=== PATIENT | female | born 2000 | race Caucasian/White ===

== ENCOUNTER 2021-05-02 22:22 | Outpatient (CLI) | payer MEDICAID | END 2021-05-02 22:23 | disposition short-term general hospital (02) | LOC: EMS 22:22 | DX: R55 Syncope and collapse (principal) | CPT/HCPCS: A0425; A0427; A0999 ==

== ENCOUNTER 2022-09-03 15:30 | Emergency (ER) | payer MEDICAID ==
[2022-09-03 15:57] LABS: BILIRUBIN,URINE NEGATIVE (NEGATIVE); GLUCOSE, URINE (UA) 250 mg/dL (NEGATIVE); KETONES,URINE (UA) NEGATIVE (NEGATIVE); LEUKOCYTE ESTERASE, URINE NEGATIVE (NEGATIVE); NITRITE,URINE NEGATIVE (NEGATIVE); OCCULT BLOOD,URINE NEGATIVE (NEGATIVE); PROTEIN,URINE NEGATIVE (NEGATIVE); UROBILINOGEN,URINE 0.2 (NORMAL) E.U./dL (NORMAL)
[2022-09-03 15:59] LABS: CLARITY,URINE CLEAR (CLEAR); HCG UR QUAL NEGATIVE
--- NOTE | 2022-09-03 16:48 | ED Physician Documentation ---
History of Present Illness - Stated complaint Stated Complaint: FEMALE /BACK PX - Chief complaint Chief Complaint: UTI - Additonal information Additional information: 22-year-old female presents emergency department for evaluation of 3 days dysuria urgency and frequency. Feels like she does not fully empty her bladder and she has to go all the time. She denies thirst night sweats or weight loss. She is at the bedside feeding a 1-year-old . She reports that he was delivered via secondary to preeclampsia. She denies any history of diabetes or gestational diabetes. Denies that she has diabetes in her parents or siblings. Review of Systems Constitutional: reports: Reviewed and negative Nose: reports: Reviewed and negative Throat: reports: Reviewed and negative Cardiac: reports: Reviewed and negative GI: denies: Abdominal Pain, Nausea, Vomiting : reports: Dysuria, Frequency, Hesitancy Skin: reports: Reviewed and negative PD PAST MEDICAL HISTORY - Present Medications Home Medications: Ambulatory Orders Medication Instructions Recorded Confirmed No Known Home Medications 09/03/22 09/03/22 - Allergies Allergies/Adverse Reactions: Allergies Allergy/AdvReac Type Severity Reaction Status Date / Time No Known Drug Allergies Allergy Verified 09/03/22 15:37 PD ED PE NORMAL - General General: Alert and oriented X 3, No acute distress - HEENT HEENT: Atraumatic, Ears normal - Neck Neck: Supple, no meningeal sign, No adenopathy - Cardiac Cardiac: RRR, No murmur - Respiratory Respiratory: No respiratory distress, Clear bilaterally - Abdomen Abdomen: Normal bowel sounds, Soft, Non tender - Back Back: No CVA TTP - Derm Derm: Normal color, Warm and dry - Extremities Extremities: No deformity, No tenderness to palpate, Normal ROM s pain - Neuro Neuro: Alert and oriented X 3, 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 Eye Opening: Spontaneous Motor: Obeys Commands Verbal: Oriented GCS Score: 15 Results - Vitals Vitals: Vital Signs - 24 hr 09/03/22 15:37 Temperature 36.5 C Heart Rate 86 Respiratory 16 Rate Blood Pressure 110/63 O2 Saturation 99 Oxygen O2 Source Room air - Labs Labs: Laboratory Tests 09/03/22 09/03/22 09/03/22 15:48 16:49 16:49 WBC 8.9 RBC 5.02 Hgb 12.8 Hct 40.1 MCV 79.9 L MCH 25.5 L MCHC 31.9 L RDW 14.6 Plt Count 387 MPV 10.0 Neut # (Auto) 5.2 Lymph # (Auto) 3.0 [place] # (Auto) 0.6 Eos # (Auto) 0.1 Baso # (Auto) 0.0 Absolute Nucleated RBC 0.00 Nucleated RBC % 0.0 Sodium 137 Potassium 3.3 L Chloride 103 Carbon Dioxide 24 Anion Gap 10.0 BUN 19 Creatinine 0.7 Estimated GFR (MDRD) 104 Glucose 109 H Calcium 8.8 Urine Color YELLOW Urine Clarity CLEAR Urine pH 6.0 Ur Specific [place] 1.020 Urine Protein NEGATIVE Urine Glucose (UA) 250 H Urine Ketones NEGATIVE Urine Occult Blood NEGATIVE Urine Nitrite NEGATIVE Urine Bilirubin NEGATIVE Urine Urobilinogen 0.2 (NORMAL) Ur Leukocyte Esterase NEGATIVE Ur Microscopic Review NOT INDICATED Urine Culture Comments NOT INDICATED Urine HCG, Qual NEGATIVE Serum Ketones NEGATIVE PD MEDICAL DECISION MAKING - ED course Complexity details: reviewed results, re-evaluated patient, considered differential, d/w patient ED course: 22-year-old female presents emergency department for evaluation of 3 days of dysuria urgency and frequency. No fevers no flank pain. Minimal abdominal ten derness was elicited on exam however her UA shows no markers of infection but trena glucosuria. With this finding I obtained a CBC as well as electrolytes. Her sugar was only 109. Ketones were negative. Hemoglobin A1c is pending. I am suspicious that this patient may be developing early diabetes and am advising very close follow-up with her primary care provider. Urine culture was obtained given the urinary symptoms but will defer antibiotics unless culture is positive. Emergent return precautions otherwise discussed Departure - Departure Disposition: 01 Home, Self Care Clinical Impression: Urinary frequency, Glucosuria Condition: Stable Record reviewed to determine appropriate education?: Yes Instructions: Prediabetes Follow-Up: LOIS FUENTES [Primary Care Provider] - Comments: You are seen today emergency department because for few days you have had painful and frequent urination. Your urine however did not show any findings of infection though there was a large amount of glucose in it. We did obtain a CBC which was normal however the blood sugar was only mildly elevated at 109. Hemoglobin A1c is pending on you. This is a lab that can be used as a marker determinant if somebody has developed diabetes. We are sending your urine for a culture but I would like you to follow very closely with Dr. Fuentes to discuss this ED visit as well as the findings of sugar in your urine as more testing evaluation may be necessary. Return to the ER if you develop any sudden severe abdominal pain, have uncontrolled vomiting, or excessively lethargic or develop any fevers.
[2022-09-03 16:54] LABS: BASOPHILS % (AUTO) 0.3 %; EOSINOPHILS # (AUTO) 0.1 10^3/uL (0.0-0.7); EOSINOPHILS % (AUTO) 0.7 %; HCT - HEMATOCRIT 40.1 % (37.0-47.0); HGB - HEMOGLOBIN 12.8 g/dL (12.0-16.0); LYMPHOCYTES % (AUTO) 34.2 %; MEAN CORPUSCULAR HEMOGLOBIN 25.5 pg (27.0-31.0); MEAN CORPUSCULAR HGB CONC 31.9 g/dL (32.0-36.0); MEAN CORPUSCULAR VOLUME 79.9 fL (81.0-99.0); MONOCYTES # (AUTO) 0.6 10^3/uL (0.0-1.0); MONOCYTES % (AUTO) 6.2 %; NEUTROPHILS # (AUTO) 5.2 10^3/uL (1.5-6.6); NEUTROPHILS % (AUTO) 58.4 %; PLT - PLATELET COUNT 387 10^3/uL (130-450); RED BLOOD COUNT 5.02 10^6/uL (4.20-5.40); RED CELL DISTRIBUTION WIDTH 14.6 % (12.0-15.0); WHITE BLOOD COUNT 8.9 x10^3/uL (4.8-10.8)
[2022-09-03 17:04] LABS: BUN - BLOOD UREA NITROGEN 19 mg/dL (6-20); CALCIUM 8.8 mg/dL (8.5-10.3); CARBON DIOXIDE - CO2 24 mmol/L (21-32); CHLORIDE 103 mmol/L (101-111); CREATININE 0.7 mg/dL (0.4-1.0); GFR - MDRD 104 (>89); GLUCOSE 109 mg/dL (70-100); KETONES, SERUM (ACETEST) NEGATIVE (NEGATIVE); POTASSIUM 3.3 mmol/L (3.5-5.0); SODIUM 137 mmol/L (135-145)
[2022-09-03 17:42] VITALS: BP 111/64
[2022-09-03 20:51] LABS: ESTIMATED AVERAGE GLUCOSE 105 mg/dL (70-100); HEMOGLOBIN A1c% 5.3 % (4.27-6.07)
== END 2022-09-03 17:49 | disposition home or self-care (01) ==
LOC: ED 15:30
DX: R35.0 Frequency of micturition (principal); R39.15 Urgency of urination; R30.0 Dysuria; R81 Glycosuria
CPT/HCPCS: 36415; 80048; 81001; 81003; 81025; 82009; 83036; 85025; 87086; 99283; 99284